=== PATIENT | male | born 1990 | race Two or more races ===

== ENCOUNTER 2020-10-24 14:54 | Emergency (ER) | payer SELFPAY ==
[~2020-10-24] VITALS: Ht 188 cm; Wt 104.2 kg
[2020-10-24 15:25] VITALS: BP 146/83
[2020-10-24] MEDS ORDERED: LIDOCAINE-MPF 1%, 5ML ONE ×2 (16:36→17:19)
[2020-10-24] MEDS ORDERED: LIDOCAINE 1%, 10ML INFIL ONE (17:00)
--- NOTE | 2020-10-24 17:15 | NUR ---
This pt injured himself at his [employer] job, he works for himself and denies worker's compensation. Pt with 5th finger lac, at approx the distal tip of the nail bed. NAD.
[2020-10-24] MEDS ORDERED: NEOSPORIN OINT. PKT 1 PACKET ONE ×2 (17:52→18:38)
[2020-10-24] MEDS ORDERED: CEFAZOLIN 1,000 MG ONE (17:55)
[2020-10-24] MEDS ORDERED: DIPH,PERTUSS(ACELL),TET VAC/PF 0.5 ML IM-VACC ONE ×2 (17:58→18:00)
[2020-10-24] MEDS ORDERED: CEFAZOLIN 1,000 MG IM ONE (18:00)
== END 2020-10-24 19:02 | disposition home or self-care (01) ==
LOC: ED 18:55
DX: S91.115A Laceration without foreign body of left lesser toe(s) without damage to nail, initial encounter (principal); X58.XXXA Exposure to other specified factors, initial encounter; Y93.89 Activity, other specified; Y92.69 Other specified industrial and construction area as the place of occurrence of the external cause; Y99.8 Other external cause status
CPT/HCPCS: 73130; 90471; 90715; 96372; 99284; J0690